=== PATIENT | female | born 1955 | race Caucasian/White ===

== ENCOUNTER 2017-03-30 09:14 | Outpatient (CLI) | payer OTHER | END 2017-03-30 19:14 | disposition home or self-care (01) | LOC: SMA 09:14 | PROVIDERS: ATTEND Internal Medicine | DX: Z12.31 Encounter for screening mammogram for malignant neoplasm of breast (principal) | CPT/HCPCS: G0202 ==

== ENCOUNTER 2018-08-06 09:32 | Outpatient (CLI) | payer OTHER | END 2018-08-06 19:23 | disposition home or self-care (01) | LOC: SMA 09:32 | DX: Z12.31 Encounter for screening mammogram for malignant neoplasm of breast (principal) | CPT/HCPCS: 77067 ==